=== PATIENT | female | born 1985 | race Caucasian/White ===

== ENCOUNTER 2016-12-10 18:14 | Emergency (ER) | payer OTHER ==
[2016-12-10 18:32] VITALS: BMI 33.6
[2016-12-10 18:34] VITALS: BP 148/94; PULSE 80; RESP 17; TEMP 98.7; O2SAT 100
--- NOTE | 2016-12-10 19:37 | C.PDOC ---
History Of Present Illness 31 y/o female presents to the ED with complaints of right wrist pain which onset yesterday with occasional tingling. Pain is worse with movement. Pain and swelling has improved since yesterday. She works on computers in IT. Denies trauma, weakness, numbness or any other complaints. Time Seen by Provider: 12/10/16 18:37 Chief Complaint (Nursing): Upper Extremity Problem/Injury History Per: Patient History/Exam Limitations: no limitations Onset/Duration Of Symptoms: Hrs Current Symptoms Are (Timing): Still Present Quality: "Pain" Severity: Moderate Recent travel outside of the [place]: No Past Medical History Reviewed: Historical Data, Nursing Documentation, Vital Signs Vital Signs: Last Vital Signs Temp 98.7 F 12/10/16 18:32 Pulse 80 12/10/16 18:32 Resp 17 12/10/16 18:32 BP 148/94 H 12/10/16 18:32 Pulse Ox 100 12/14/16 00:42 Family History: States: Unknown Family Hx - Social History Hx Alcohol Use: No Hx Substance Use: No - Immunization History Hx Tetanus Toxoid Vaccination: Yes Hx Influenza Vaccination: Yes Hx Pneumococcal Vaccination: Yes Review Of Systems Musculoskeletal: Positive for: Other (right wrist pain with occasional tingling) Neurological: Negative for: Weakness Physical Exam - Physical Exam Appears: Non-toxic, No Acute Distress Skin: Warm, Dry, No Rash Head: Atraumatic, Normacephalic Eye(s): bilateral: Normal Inspection, EOMI Nose: Normal Oral Mucosa: Moist Chest: Symmetrical Respiratory: No Accessory Muscle Use Extremity: No Normal ROM (decreased ROM right wrist secondary to pain), Tenderness (diffuse right wrist), Capillary Refill (<2 seconds), Other ((+) tinel test) Extremity: Bilateral: Normal Color And Temperature Pulses: Left Radial: Normal, Right Radial: Normal Neurological/Psych: Oriented x3, Normal Speech, Normal Motor, Normal Sensation ED Course And Treatment O2 Sat by Pulse Oximetry: 100 (room air) Pulse Ox Interpretation: Normal Progress Note: Plan: tramadol. Pt refused XR. pain improved on reevaluation. Wrist immobilizer applied. Instructed RICE and follow up with ortho in 1-2 days. Disposition - Disposition Referrals: Clinic,Med Surg [Primary Care Provider] - Disposition: HOME/ ROUTINE Disposition Time: 19:35 Condition: STABLE Additional Instructions: REst and ice the area. Watch for redness, increased swelling, change in color, or change in sensation. Follow up with hand specialist/PMD in 1-2 days. Return to ER if symptoms persist or worsen. Instructions: Tendinitis (ED) - Clinical Impression Clinical Impression: Tendonitis - PA / TECHNICAL SALES SUPPORT MANAGER / Resident Statement MD/DO has reviewed & agrees with the documentation as recorded. - Scribe Statement The provider has reviewed the documentation as recorded by the Scribmarcelo Mark All medical record entries made by the Luz were at my direction and personally dictated by me. I have reviewed the chart and agree that the record accurately reflects my personal performance of the history, physical exam, medical decision making, and the department course for this patient. I have also personally directed, reviewed, and agree with the discharge instructions and disposition.
== END 2016-12-10 20:11 | disposition home or self-care (01) ==
LOC: SUPCPDRO 18:14 → C.ER 18:14
DX: M77.9 Enthesopathy, unspecified (principal)

== ENCOUNTER 2017-01-11 18:13 | Emergency (ER) | payer OTHER ==
[2017-01-11 18:14] VITALS: BMI 33.6
[2017-01-11 18:36] VITALS: BP 156/92; PULSE 75; RESP 18; TEMP 99; O2SAT 99
--- NOTE | 2017-01-11 19:12 | C.PDOC ---
History Of Present Illness The pt is a 31yo female, presents to the ED for evaluation of itchy rash that started 2 days ago. Pt reports she noticed one spot initially and then found more developed 2 days later. She denies any known allergens and states she has not had any new foods or medications. She denies any difficulty breathing or swallowing. She also states she did not take any OTC medications for her symptoms. She offers no additional medical complaints. Time Seen by Provider: 01/11/17 18:36 Chief Complaint (Nursing): Abnormal Skin Integrity History Per: Patient History/Exam Limitations: no limitations Onset/Duration Of Symptoms: Days (2) Current Symptoms Are (Timing): Still Present Past Medical History Reviewed: Historical Data, Nursing Documentation, Vital Signs Vital Signs: Last Vital Signs Temp 99 F 01/11/17 18:30 Pulse 75 01/11/17 18:30 Resp 18 01/11/17 18:30 BP 156/92 H 01/11/17 18:30 Pulse Ox 99 01/11/17 20:15 - Medical History PMH: No Chronic Diseases Surgical History: No Surg Hx Family History: States: Unknown Family Hx - Social History Hx Alcohol Use: No Hx Substance Use: No - Immunization History Hx Tetanus Toxoid Vaccination: Yes Hx Influenza Vaccination: Yes Hx Pneumococcal Vaccination: Yes Review Of Systems Except As Marked, All Systems Reviewed And Found Negative. ENT: Negative for: Other (difficulty swallowing) Respiratory: Negative for: Shortness of Breath Skin: Positive for: Rash Physical Exam - Physical Exam Appears: Well, Non-toxic Skin: Warm, Dry, Rash (left back with 3cm area with erythema, scaling and some central clearance. Multiple less than 1cm erythematous maculopapular rash with some scaling also noted.) Head: Atraumatic, Normacephalic Eye(s): bilateral: Normal Inspection, EOMI Nose: Normal Oral Mucosa: Moist Throat: Normal, No Erythema, No Exudate, No Drooling Neck: Normal, Normal ROM, Supple Chest: Symmetrical Cardiovascular: Rhythm Regular Respiratory: Normal Breath Sounds Neurological/Psych: Oriented x3, Normal Speech ED Course And Treatment O2 Sat by Pulse Oximetry: 99 (RA) Pulse Ox Interpretation: Normal Progress Note: Upon re-evaluation, Patient is resting comfortably, tolerating PO , has no shortness of breath, has no intra-oral swelling, no stridor. Patient notes that pruritus has improved.. Patient was advised to avoid potential allergens, and to follow up with physician in 1-2 days Medical Decision Making Medical Decision Making: Plan: -- Benadryl IM -- Reevaluation Disposition - Disposition Disposition: HOME/ ROUTINE Disposition Time: 19:13 Condition: STABLE Additional Instructions: Follow up with primary medical doctor in 1-3 days without fail for further evaluation. Take medications as prescribed. Return to the emergency department at any time if symptoms persist or worsen. Prescriptions: DiphenhydrAMINE [Benadryl] 25 mg PO Q6 #20 cap Hydrocortisone 1% Cream [Cortizone 1% Cream] 1 appl TP TID #1 tube Instructions: Acute Rash (ED) Forms: [employer] (Hungarian) - Clinical Impression Clinical Impression: Rash, Pityriasis rosea - Scribe Statement The provider has reviewed the documentation as recorded by the Luz Marlow Provider Attestation: All medical record entries made by the Luz were at my direction and personally dictated by me. I have reviewed the chart and agree that the record accurately reflects my personal performance of the history, physical exam, medical decision making, and the department course for this patient. I have also personally directed, reviewed, and agree with the discharge instructions and disposition.
== END 2017-01-11 19:20 | disposition home or self-care (01) ==
LOC: C.ER 18:13
DX: L42 Pityriasis rosea (principal)